=== PATIENT | male | born 1960 | race Caucasian/White ===

== ENCOUNTER 2023-03-27 13:32 | Emergency (ER) | payer SELFPAY ==
[~2023-03-27] VITALS: Ht 180.3 cm; Wt 102.3 kg
[~2023-03-27 13:32] MED LIST: AMOXICILLIN 8751 TAB PO; NORCO 325 MG-51 TAB PO
[2023-03-27 13:35] VITALS: TEMP 97.6
[2023-03-27] MEDS ORDERED: PERCOCET 325 MG1 TA2 PO (14:37)
[2023-03-27 14:54] VITALS: BP 117/79; PULSE 86
== END 2023-03-27 14:54 | disposition home or self-care (01) ==
LOC: COL.ER 13:32
DX: S49.91XA Unspecified injury of right shoulder and upper arm, initial encounter (principal); W00.0XXA Fall on same level due to ice and snow, initial encounter
CPT/HCPCS: J3010